=== PATIENT | female | born 1965 | race Caucasian/White ===

== ENCOUNTER → 2017-09-22 | Outpatient (CLI) | payer OTHER ==
[2017-09-22 15:40] LABS: ANION GAP 6 MEQ/L (8-16); BLOOD UREA NITROGEN 19 MG/DL (7-18); CALCIUM LEVEL 8.6 MG/DL (8.5-10.1); CARBON DIOXIDE LEVEL 27 MEQ/L (21-32); CHLORIDE LEVEL 109 MEQ/L (98-107); CREATININE FOR GFR 0.71 MG/DL (0.55-1.30); FREE T4 1.25 NG/DL (0.76-1.46); GLOMERULAR FILTRATION RATE > 60.0 (>51); GLUCOSE, FASTING 101 MG/DL (70-100); POTASSIUM SERUM 4.2 MEQ/L (3.5-5.1); SODIUM LEVEL 142 MEQ/L (136-145); THYROID STIMULATING HORMONE 0.509 uIU/ML (0.358-3.740)
== END ==
LOC: M SMT 08:09
DX: E03.9 Hypothyroidism, unspecified (principal); R60.0 Localized edema
CPT/HCPCS: 84443

== ENCOUNTER → 2018-07-20 | Outpatient (REF) | payer OTHER | LOC: M LAB REF 12:16 | PROVIDERS: ATTEND Physician Assistant Medical | DX: J02.9 Acute pharyngitis, unspecified (principal) ==

== ENCOUNTER → 2018-09-13 | Outpatient (REF) | payer OTHER | LOC: M LAB REF 12:35 | PROVIDERS: ATTEND Physician Assistant | DX: J02.9 Acute pharyngitis, unspecified (principal) ==

== ENCOUNTER → 2019-04-22 | Outpatient (CLI) | payer OTHER ==
--- NOTE | 2019-04-28 09:39 | SLEEPCENT ---
DATE OF PROCEDURE: 04/22/2019 ORDERED BY: BING Resendiz Nocturnal polysomnography was performed for evaluation of sleep physiology in this patient with a history of excessive somnolence and nonrestorative sleep. 7 hours and 44 minutes of data were reviewed. There were 383 minutes of sleep identified. Sleep latency was short at 80 minutes. Rapid eye movement (REM) latency was delayed at 151 minutes. Sleep architecture improved substantially later in the study after interventions were made. Overall sleep efficiency was 83.9%. The electrocardiogram showed sinus rhythm with an average heart rate of 66 beats per minute. Electroencephalogram (EEG) showed fairly normal waveforms for awake and sleep. There were 151 respiratory events identified of 10 seconds in duration or greater for an apnea-hypopnea index of 23.7. The events were quite frequent and associated with oxygen desaturations into the low 80s. Having clearly established the presence of obstructive sleep apnea syndrome testing was stopped shortly after 1 a.m. for the application of pressure therapy. The patient was fit with a [employer]Med AirFit F30 full-face mask of medium size; 5 cm of water pressure were applied to the circuit and the lights were extinguished. Throughout the remaining hours of testing pressure titration was carried out to an optimal pressure of +11 with which the patient slept through REM without respiratory event or oxygen desaturation. IMPRESSION: Obstructive sleep apnea syndrome (G47.33). Apnea-hypopnea index 23.7. RECOMMENDATIONS: Nightly use of pressure therapy 11 cm of water.
== END ==
LOC: M SLEEP 20:05
PROVIDERS: ATTEND Nurse Practitioner Family
DX: G47.33 Obstructive sleep apnea (adult) (pediatric) (principal)

== ENCOUNTER → 2019-05-31 | Outpatient (REF) | payer OTHER | LOC: M LAB REF 16:30 | PROVIDERS: ATTEND Physician Assistant | DX: J02.9 Acute pharyngitis, unspecified (principal) ==

== ENCOUNTER → 2019-09-29 | Outpatient (CLI) | payer OTHER ==
--- NOTE | 2019-09-30 05:05 | REP ---
Clinical: Left flank pain. Technique: Axial noncontrast images from the lung bases to the pubic symphysis with coronal and sagittal re-formations. Comparison: 10/18/2018. Findings: Lung bases are clear. Visualized heart and pericardium normal. Hepatosplenomegaly is suggested without focal lesion. Cholelithiasis noted without CT evidence for acute cholecystitis. Pancreas, bilateral adrenal glands, and kidneys are normal for noncontrast evaluation. No perinephric stranding, intrarenal or obstructing ureteral calculi are identified. The enteric system is without obstruction or acute inflammatory process. Scattered colonic diverticula noted without acute diverticulitis. Normal terminal ileum and appendix noted in the right lower quadrant. Pelvis demonstrates collapsed normal bladder and evidence for prior hysterectomy. No ascites. No free air. No adenopathy. Abdominal aorta without aneurysm. Musculoskeletal structures without acute osseous abnormality. Impression: 1. Findings to suggest mild hepatic splenomegaly. 2. Cholelithiasis. 3. Diverticulosis. Electronically Signed by Justice Cox MD 09/30/2019 04:56 A
== END ==
LOC: M RAD 14:49
PROVIDERS: ATTEND Family Medicine
DX: R10.9 Unspecified abdominal pain (principal)

== ENCOUNTER → 2020-03-27 | Outpatient (CLI) | payer OTHER ==
--- NOTE | 2020-03-28 04:53 | REP ---
INDICATION: RUQ ABD PAIN COMPARISON: None. TECHNIQUE: Real time benton scale ultrasound examination using curved array transducer. FINDINGS: Liver is normal in contour, size, and echogenicity without focal hepatic lesions identified. Pancreas is incompletely evaluated due to interposed bowel gas. The gallbladder demonstrates multiple small mobile gallstones without wall thickening, or pericholecystic fluid. No biliary ductal dilatation is appreciated and the common bile duct measures 5.8 mm diameter. Right kidney is normal in reniform shape without hydronephrosis and measures 11.2 x 6.5 x 4.8 cm. No ascites in the visualized right upper quadrant. IMPRESSION: Cholelithiasis without sonographic evidence for acute cholecystitis. <Electronically signed by Justice Cox > 03/28/20 [id number]
== END ==
LOC: M RAD 08:31
PROVIDERS: ATTEND Internal Medicine Gastroenterology
DX: K80.20 Calculus of gallbladder without cholecystitis without obstruction (principal)

== ENCOUNTER → 2020-05-28 | Outpatient (CLI) | payer SELFPAY | LOC: M LABSMTC 14:09 | PROVIDERS: ATTEND Pediatrics | DX: Z20.828 Contact with and (suspected) exposure to other viral communicable diseases (principal) ==

== ENCOUNTER 2020-12-02 08:13 | Emergency (ER) | payer OTHER ==
[~2020-12-02] VITALS: Ht 172.7 cm; Wt 185.7 kg
[2020-12-02] MEDS ORDERED: ERGO500029 (08:36)
[2020-12-02] MEDS ORDERED: LEFL1TAB4 (08:36)
[2020-12-02] MEDS ORDERED: LEVO200T4 (08:36)
[2020-12-02] MEDS ORDERED: FURO20TA2 (08:36)
[2020-12-02] MEDS ORDERED: LINZ145C (08:36)
--- NOTE | 2020-12-02 10:23 | REP ---
INDICATION: R knee pain s/p fall COMPARISON: None. TECHNIQUE: AP, lateral, and bilateral oblique views of the right knee FINDINGS: Severe advanced tricompartmental osteoarthritic degenerative changes including significant surrounding heterotopic calcifications. Lateral view suggests suprapatellar effusion. No acute fracture or dislocation. IMPRESSION: Severe advanced tricompartmental osteoarthritic degenerative changes. No acute fracture or dislocation. <Electronically signed by Justice Cox > 12/02/20 1011
--- NOTE | 2020-12-02 10:25 | REP ---
INDICATION: R thigh pain s/p fall COMPARISON: None. TECHNIQUE: AP and frog-lateral views of the right femur. FINDINGS: Hip joint demonstrates mild age-related degenerative change including increased sclerosis to the acetabular roof with minimal joint space narrowing. Advanced tricompartmental osteoarthritic changes noted at the knee. There is no evidence for acute fracture or dislocation. IMPRESSION: Degenerative changes primarily involving the knee. No acute fracture or dislocation appreciated. <Electronically signed by Justice Cox > 12/02/20 1025
--- NOTE | 2020-12-02 10:27 | REP ---
INDICATION: R shoulder pain s/p fall COMPARISON: None. TECHNIQUE: Internal rotation, external rotation, and Y view. FINDINGS: Mild age-related changes are appreciated including subtle cortical irregularity at the acromioclavicular joint. The subacromial space is normal. The glenohumeral joint appears normal. No periarticular calcifications or loose bodies are identified. Surrounding soft tissues are unremarkable. No evidence for acute fracture or dislocation. IMPRESSION: Age-related changes suggested. No acute fracture or dislocation. <Electronically signed by Justice Cox > 12/02/20 [id number]
[2020-12-02 11:46] VITALS: BP 133/81
== END 2020-12-02 11:59 | disposition home or self-care (01) ==
LOC: M ED 08:13
DX: S70.11XA Contusion of right thigh, initial encounter (principal); S46.011A Strain of muscle(s) and tendon(s) of the rotator cuff of right shoulder, initial encounter; S83.91XA Sprain of unspecified site of right knee, initial encounter; M17.11 Unilateral primary osteoarthritis, right knee; M19.011 Primary osteoarthritis, right shoulder; E66.01 Morbid (severe) obesity due to excess calories; W19.XXXA Unspecified fall, initial encounter; Y92.9 Unspecified place or not applicable; Y93.K1 Activity, walking an animal; Y99.9 Unspecified external cause status; E03.9 Hypothyroidism, unspecified; M32.9 Systemic lupus erythematosus, unspecified; K58.9 Irritable bowel syndrome, unspecified; Z88.0 Allergy status to penicillin; Z88.2 Allergy status to sulfonamides

== ENCOUNTER 2021-10-12 12:45 | Emergency (ER) | payer OTHER ==
[~2021-10-12] VITALS: Ht 170.2 cm; Wt 167.2 kg
[~2021-10-12 12:45] MED LIST: ERGO500029; FURO20TA2; LEFL1TAB4; LEVO200T4; LINZ145C
[2021-10-12 15:30] LABS: BASO % 0.2 % (0.0-1.0); EOS # 0.1 10^3/uL (0.0-0.5); EOS % 1.1 % (0.0-3.0); HEMATOCRIT 42.1 % (36.0-47.0); HEMOGLOBIN 13.1 g/dl (12.0-15.5); LYMPH # 1.3 10^3/uL (1.5-5.0); LYMPH % 13.4 % (24.0-44.0); MEAN CORPUSCULAR HEMOGLOBIN 27.8 pg (27.0-33.0); MEAN CORPUSCULAR HGB CONC 31.1 g/dl (32.0-36.5); MEAN CORPUSCULAR VOLUME 89.4 fl (80.0-96.0); MONO # 0.7 10^3/uL (0.0-0.8); MONO % 7.3 % (2.0-8.0); NEUTROPHILS # 7.7 10^3/uL (1.5-8.5); NEUTROPHILS % 77.7 % (36.0-66.0); PLATELET COUNT, AUTOMATED 230 10^3/uL (150-450); RED BLOOD COUNT 4.71 10^6/uL (4.00-5.40)
[2021-10-12 16:04] LABS: ALBUMIN 3.2 GM/DL (3.2-5.2); BILIRUBIN,DIRECT 0.1 MG/DL (0.0-0.2); BILIRUBIN,TOTAL 0.5 MG/DL (0.2-1.0); TOTAL PROTEIN 7.1 GM/DL (6.4-8.2)
[2021-10-12] MEDS ORDERED: ISOVUE-370 76% 100ML VIAL As Ordered ONE (16:29)
[2021-10-12] MEDS ORDERED: NS 1,000 ML IV ONE (16:50)
[2021-10-12 17:11] VITALS: BP 131/91
[2021-10-12] MEDS ORDERED: methylPREDNISolone 125MG 2ML VIAL IV ONE (17:40)
[2021-10-12] MEDS ORDERED: LOMO2.5T PO (17:44)
== END 2021-10-12 17:56 | disposition home or self-care (01) ==
LOC: M ED 12:45
DX: R19.7 Diarrhea, unspecified (principal); K58.0 Irritable bowel syndrome with diarrhea; Z79.899 Other long term (current) drug therapy; Z88.0 Allergy status to penicillin; Z88.1 Allergy status to other antibiotic agents; Z88.2 Allergy status to sulfonamides; Z90.710 Acquired absence of both cervix and uterus; Z87.19 Personal history of other diseases of the digestive system
CPT/HCPCS: 74177; 80047; 80076; 83690; 85025; 87507; 96360; 99284; Q9967

== ENCOUNTER 2023-10-09 01:57 | Emergency (ER) | payer OTHER ==
[~2023-10-09] VITALS: Ht 172.7 cm; Wt 183.6 kg
[~2023-10-09 01:57] MED LIST changes: -ERGO500029; +ERGO500029 PO; -LEFL1TAB4; +LEFL20TA15; -LEVO200T4; +LEVO200T4 PO; -LINZ145C; +LINZ145C PO; +LOMO2.5T PO
[2023-10-09] MEDS: PERCOCET 5MG/325MG TAB PO ONE (07:58)
[2023-10-09] MEDS ORDERED: CVS1CHW13 PO (08:22)
[2023-10-09] MEDS ORDERED: K2 P1TAB PO (08:22)
[2023-10-09] MEDS ORDERED: FOLI400T13 PO (08:22)
[2023-10-09] MEDS ORDERED: HOME MED LIST COMPLETE! XX SCH (08:25)
[2023-10-09] MEDS ORDERED: HYDR-3713 PO (08:59)
[2023-10-09 09:15] VITALS: BP 142/78; TEMP 96.9; O2SAT 98
== END 2023-10-09 09:24 | disposition home or self-care (01) ==
LOC: M ED 01:57
DX: M25.551 Pain in right hip (principal); M25.561 Pain in right knee; W10.8XXA Fall (on) (from) other stairs and steps, initial encounter; E03.9 Hypothyroidism, unspecified; F10.10 Alcohol abuse, uncomplicated; K58.9 Irritable bowel syndrome, unspecified; Z88.0 Allergy status to penicillin; Z88.2 Allergy status to sulfonamides; Y92.009 Unspecified place in unspecified non-institutional (private) residence as the place of occurrence of the external cause; Y93.89 Activity, other specified; Y99.9 Unspecified external cause status; Z79.890 Hormone replacement therapy; Z79.899 Other long term (current) drug therapy

== ENCOUNTER → 2024-06-18 | Outpatient (REF) | payer OTHER ==
[~2024-06-18] MED LIST changes: +CVS1CHW13 PO; +FOLI400T13 PO; +HYDR-3713 PO; +K2 P1TAB PO
== END ==
LOC: M LAB REF 17:31
PROVIDERS: ATTEND Physician Assistant Medical
DX: J06.9 Acute upper respiratory infection, unspecified (principal)

== ENCOUNTER → 2024-06-27 | Outpatient (CLI) | payer OTHER | LOC: M WUC 08:50 | PROVIDERS: ATTEND Student in an Organized Health Care Education/Training Program | DX: J20.9 Acute bronchitis, unspecified (principal) ==

== ENCOUNTER → 2024-07-08 | Outpatient (CLI) | payer OTHER | LOC: M WUC 10:56 | PROVIDERS: ATTEND Internal Medicine | DX: J20.9 Acute bronchitis, unspecified (principal) ==